=== PATIENT | male | born 1965 | race Caucasian/White ===

== ENCOUNTER 2017-01-23 06:08 | Emergency (ER) | payer OTHER ==
[~2017-01-23] VITALS: Ht 172.7 cm; Wt 112.9 kg
[~2017-01-23 06:08] MED LIST: BACTRIM DS 8001 TAB PO; CEPHALEXIN500 MG PO
--- NOTE | 2017-01-23 06:23 | ED NECK/BACK PAIN COMPLAINT ---
See Addendum History of Present Illness General Chief Complaint: General Adult Stated Complaint: BACK PAIN RADIATING TO CHEST NO CARDIAC HX Source: patient Exam Limitations: no limitations Vital Signs & Intake/Output Vital Signs & Intake/Output Vital Signs Date Time Temp Pulse Resp B/P B/P Pulse O2 O2 Flow FiO2 Mean Ox Delivery Rate 01/23 1127 97.2 56 15 125/67 96 Room Air Room Air 01/23 0833 49 15 126/77 98 Room Air Room Air 01/23 0751 Room Air Room Air 01/23 0622 96.8 67 18 130/84 96 Room Air Allergies Uncoded Allergies: EGGPLANT (RASH 01/23/17) Triage Nurses Notes Reviewed? yes Onset: Abrupt Duration: hour(s): Timing: single episode today Quality/Severity: moderate Location: right flank pain that wraps around to chest x 12 hours. Radiation: wraps around to right flank Context: unknown Method of Injury: twisted Loss of Consciousness: no loss of consciousness Modifying Factors: movement, pain medication, rest HPI: 51yo gentleman h/o kidney stones presents with right sided back pain that wraps around to the front of his right chest, intermittent, without fever, chills, cough, phlegm. He notes occasional chest pain, "It was 5/10 last night, now it's 2/10." He notes no urinary symptoms or abdominal pain. (YOAV MALIK,HERBERTH Jackson) Reconcile Medications Cephalexin 500 MG CAP 1 CAP PO 4 TIMES/DAY SKIN INFECTION Hyoscyamine Sulfate (Levsin-Sl) 0.125 MG TAB.SUBL 1-2 TAB SL Q4P PRN abdominal discomfort Simethicone (Phazyme) 250 MG CAPSULE 1 CAP PO Q4P PRN gas Sulfamethoxazole/Trimethopri (Bactrim Ds 800 MG-160 MG) 1 TAB TAB 1 TAB PO BID SKIN INFECTION Tramadol HCl (Ultram) 50 MG TABLET 1-2 TAB PO Q6PRN PRN severe pain (JOHN LOZADA MD) Past History Medical History Any Pertinent Medical History? 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 No (YOAV MALIK,HERBERTH Jackson) Review of Systems Review of Systems Constitutional: Reports: no symptoms. Eyes: Reports: no symptoms. Ears, Nose, Throat, Mouth: Reports: no symptoms. Respiratory: Reports: no symptoms. Cardiovascular: Reports: no symptoms. Gastrointestinal/Abdominal: Reports: no symptoms. Musculoskeletal: Reports: no symptoms. Skin: Reports: no symptoms. Neurological/Psychological: Reports: no symptoms. All Other Systems: Reviewed and Negative (YOAV MALIK,HERBERTH Jackson) Physical Exam Physical Exam General Appearance: well developed/nourished, mild distress Head: atraumatic Eyes: Bilateral: PERRL, EOMI. Ears, Nose, Throat, Mouth: hearing grossly normal Neck: normal inspection, supple, full range of motion Respiratory: normal breath sounds Cardiovascular: regular rate/rhythm Gastrointestinal: soft, non-tender Back: normal inspection (right sided ), right sided mucle spasm to palpation. Extremities: normal range of motion Sensory: Medial Le: L4R, L4L. Neurologic/Psych: awake, alert, oriented x 3, normal mood/affect Skin: intact, normal color, warm/dry Comments: dtr's and motor strength intact bilaterally in upper and lower extremties. (YOAV MALIK,HERBERTH Jackson) Progress Differential Diagnosis: myofascial strain, pyelo/UTI, ureterolithiasis Plan of Care: Orders Procedure Date/time Status Add-on Test (ER Only) 01/23 0709 Active EKG 01/23 07 Active URINALYSIS 01/24 644 Complete TROPONIN LEVEL 01/24 644 Complete LIPASE 01/24 644 Complete D-DIMER 01/24 644 Complete COMPREHENSIVE METABOLIC PANEL 01/24 644 Complete CBC WITHOUT DIFFERENTIAL 01/24 644 Complete Laboratory Tests 01/23/17 0737: Urine Color YEL, Urine Clarity CLEAR, Urine pH 6.0, Ur Specific [place] 1.025, Urine Protein 100 H, Urine Ketones NEG, Urine Nitrite NEG, Urine Bilirubin NEG, Urine Urobilinogen 0.2, Ur Leukocyte Esterase NEG, Ur Microscopic SEDIMENT EXAMINED, Urine RBC 1-3, Urine WBC RARE, Hyaline Casts RARE H, Urine Mucus FEW, Urine Hemoglobin TRACE-INTACT H, Urine Glucose NEG 01/23/17 0719: Anion Gap 12, Estimated GFR 58 L, BUN/Creatinine Ratio 10.0, Glucose 96, Calcium 8.8, Total Bilirubin 1.0, AST 24, ALT 38, Alkaline Phosphatase 54, Troponin I < 0.01, Total Protein 7.0, Albumin 4.2, Globulin 2.8, Albumin/ Globulin Ratio 1.5, Lipase 117, D-Dimer 222, CBC w Diff NO MAN DIFF REQ, RBC 5.36, MCV 90.8, MCH 30.2, RDW 12.6, MPV 8.7, Gran % 72.0, Lymphocytes % 16.6 L, Monocytes % 7.2, Eosinophils % 3.6, Basophils % 0.6, Absolute Granulocytes 5.7, Absolute Lymphocytes 1.3, Absolute Monocytes 0.6, Absolute Eosinophils 0.3, Absolute Basophils 0, PUBS MCHC 33.3 Diagnostic Imaging: Viewed by Me: CT Scan. Discussed w/RAD: CT Scan. Hand-Off Endorsed To: JOHN LOZADA MD Endorsed Time: 0700 Pending: labs, Xray (HERBERTH CASON MD) Diagnostic Imaging: Viewed by Me: Radiology Read, Ultrasound. Discussed w/RAD: Radiology Read, Ultrasound. Radiology Impression: Normal right upper quadrant ultrasound. No gallstones or evidence of acute cholecystitis. Visualization of the pancreas is obscured by bowel gas. CXR Impression: no acute abnormality, no infiltrates, normal size heart, normal mediastinum Initial ED EKG: normal axis, normal intervals, normal p-waves, normal QRS complex, normal sinus rhythm, no ST T wave changes Rhythm Strip: normal sinus rhythm Comments: Pain improved with interventions. (JOHN LOZADA MD) Departure Departure Condition: Stable Referrals: UNKNOWN (PCP/Family) Departure Forms: Customer Survey General Discharge Information (HERBERTH CASON MD) Departure Time of Disposition: 1137 Disposition: HOME OR SELF CARE Clinical Impression Primary Impression: Back pain Qualifiers: Back pain location: thoracic back pain Chronicity: acute Back pain laterality: right Qualified Code: M54.6 - Pain in thoracic spine Secondary Impressions: Eructation Prescriptions: Current Visit Scripts Hyoscyamine Sulfate (Levsin-Sl) 1-2 TAB SL Q4P PRN abdominal discomfort #60 TAB Simethicone (Phazyme) 1 CAP PO Q4P PRN gas #50 CAP Tramadol HCl (Ultram) 1-2 TAB PO Q6PRN PRN severe pain #30 TAB ([place] MALIK,JOHN)
[2017-01-23 07:35] LABS: ABSOLUTE BASOPHIL COUNT 0 /CUMM (0.0-0.2); ABSOLUTE EOSINOPHIL COUNT 0.3 /CUMM (0.0-0.7); ABSOLUTE GRANULOCYTE CT 5.7 /CUMM (1.4-6.5); ABSOLUTE LYMPH COUNT 1.3 /CUMM (1.2-3.4); ABSOLUTE MONOCYTE COUNT 0.6 /CUMM (0.10-0.60); BASOPHIL % 0.6 % (0.0-2.0); EOSINOPHIL % 3.6 % (0-5); HEMATOCRIT 48.7 % (42-52); MEAN CORPUSCULAR HGB 30.2 PG (27.0-31.0); MEAN CORPUSCULAR HGB CONC 33.3 G/DL (33.0-37.0); MEAN CORPUSCULAR VOLUME 90.8 FL (80.0-94.0); MEAN PLATELET VOLUME 8.7 FL (7.4-10.4); PLATELET COUNT 174 /CUMM (130-400); RBC DISTRIBUTION WIDTH 12.6 % (11.5-14.5); RED BLOOD CELL CT 5.36 /CUMM (4.70-6.10); WHITE BLOOD CELL COUNT 7.9 /CUMM (4.8-10.8)
--- NOTE | 2017-01-23 09:56 | RADIOLOGY REPORT ---
EXAMINATION: XR PORTABLE CHEST CLINICAL INFORMATION: Right back and chest pain. COMPARISON: 07/13/2015. TECHNIQUE: Portable frontal view of the chest was obtained. FINDINGS: The cardiomediastinal silhouette is normal. Lung volumes are low. The lungs are clear. No consolidation, pulmonary edema, pleural effusion, or pneumothorax. No acute osseous abnormality. There appears to be a stable inferiorly oriented osseous excrescence off of the distal right clavicle. IMPRESSION: No acute abnormality.
--- NOTE | 2017-01-23 11:15 | ULTRASOUND REPORT ---
EXAMINATION: US ABDOMEN LIMITED CLINICAL INFORMATION: Biliary colic. COMPARISON: None TECHNIQUE: Real-time imaging of the right upper quadrant abdominal viscera. FINDINGS: PANCREAS: Visualization of the pancreas is obscured by bowel gas. LIVER: Normal. The liver demonstrates normal size, contour and echogenicity. No focal lesion or intrahepatic biliary duct dilatation. GALLBLADDER: Normal. The gallbladder is physiologically distended without evidence of stones, sludge, polyps, wall thickening or pericholecystic fluid. COMMON BILE DUCT: Normal in caliber measuring 0.6 cm in diameter. RIGHT KIDNEY: Normal. No hydronephrosis. No renal calculi or focal parenchymal lesions. The kidney measures 12.2 cm in maximum dimension. FREE FLUID: None. IMPRESSION: Normal right upper quadrant ultrasound. No gallstones or evidence of acute cholecystitis. Visualization of the pancreas is obscured by bowel gas.
[2017-01-23 11:27] VITALS: BP 125/67
[2017-01-23] MEDS ORDERED: ULTRAM50 M1 PO (11:42)
[2017-01-23] MEDS ORDERED: LEVSIN-SL0.125 MG SL (11:42)
[2017-01-23] MEDS ORDERED: PHAZYME250 MG PO (11:42)
== END 2017-01-23 12:03 ==
LOC: ERH 06:08
PROVIDERS: Pediatrics
DX: M54.9 Dorsalgia, unspecified (principal); R07.9 Chest pain, unspecified; R14.2 Eructation
CPT/HCPCS: 81001; 93005; 93010; 96365; 96375; J0131; J1885